=== PATIENT | female | born 1990 | race Two or more races ===

== ENCOUNTER 2024-04-21 18:35 | Inpatient (IN) | payer BC, MEDICAID ==
[~2024-04-21] VITALS: Ht 165.1 cm; Wt 98.4 kg
[~2024-04-21 18:35] MED LIST: AMLO1TAB23 PO; LOSA-533 PO; METF-370 PO; SEMA2INJ3 SC; TRIA0.02 TOP
[2024-04-21 19:24] LABS: Chloride 106 mmol/L (98-107); Potassium 3.5 mmol/L (3.5-5.1); Sodium 137 mmol/L (136-145)
[2024-04-21 19:25] LABS: Anion Gap 8 (5-15); Carbon Dioxide 23 mmol/L (20-31)
[2024-04-21 19:26] LABS: Basophils # (auto) 0.1 10 ^3/uL (0-0.2); Calcium 9.5 mg/dL (8.7-10.4); Eosinophils # (auto) 0.2 10 ^3/uL (0-0.8); Hemoglobin 13.1 g/dL (12.2-16.2); Lymphocytes # (auto) 2.6 10 ^3/uL (0.4-5.4); Neutrophils # (auto) 8.6 10 ^3/uL (1.6-8.6); Nucleated Red Blood Cells % 0.1 %; White Blood Cell 12.1 10^3/uL (4.4-10.8)
[2024-04-21 19:28] LABS: Basophils % (auto) 0.7 % (0.0-2.0); Eosinophils % (auto) 1.9 % (0.0-7.0); Hematocrit 40.5 % (36.0-46.0); Lymphocytes % (auto) 21.2 % (10.0-50.0); Mean Corpuscular Hemoglobin 22.7 pg (28.0-32.0); Mean Corpuscular Hgb Conc. 32.4 g/dL (32.0-36.0); Monocytes # (auto) 0.7 10 ^3/uL (0-1.3); Monocytes % (auto) 5.4 % (0.0-12.0); Neutrophils % (auto) 70.8 % (37.0-80.0); Platelet Count (auto) 319 10^3/uL (140-450); Red Blood Cells 5.79 10^6/uL (4.0-5.20); Red Cell Distribution Width 17.2 % (11.8-14.3)
[2024-04-21 19:31] LABS: BUN/Creatinine Ratio 11.3 (10.0-20.0); Blood Urea Nitrogen 7 mg/dL (9-23); Glucose 155 mg/dL (74-106)
[2024-04-21 19:41] VITALS: PULSE 99; RESP 25; O2SAT 99
[2024-04-21] MEDS: ACETAMINOPHEN 325 MG TAB PO ONE (20:19)
[2024-04-21 21:00] VITALS: PULSE 82; RESP 15; O2SAT 99
[2024-04-21 21:49] LABS: Urine Bacteria None Seen /hpf (None Seen)
[2024-04-21 21:57] LABS: Urine Blood TRACE /uL (Negative); Urine Clarity Clear (Clear); Urine Color Light-Yellow (Yellow); Urine Protein, UAD TRACE (Negative); Urine Specific Gravity 1.011 (1.001-1.035); Urine Urobilinogen Normal (Negative); Urine WBC 22 /hpf (0 - 5); Urine pH 5.5 (5.0-9.0)
[2024-04-21] MEDS: SODIUM CHLORIDE 0.9% 1,000 ML IV ONE (22:03)
[2024-04-21] MEDS ORDERED: CEPH250C PO (22:25)
[2024-04-21] MEDS: CEPHALEXIN 250 MG CAP PO ONE (22:59)
[2024-04-22] MEDS ORDERED: DEXTROSE (50%) 50ML SYRG IV PRN (00:15)
[2024-04-22] MEDS ORDERED: LABETALOL HCL 20 MG/4 ML VL IV PRN (00:15)
[2024-04-22] MEDS: cefTRIAXone 1GM/50ML D5W 50 ML IV ONE (00:15)
[2024-04-22 00:19] LABS: Urine Bacteria None Seen /hpf (None Seen)
[2024-04-22 00:44] LABS: Urine Blood 2+ /uL (Negative); Urine Clarity Clear (Clear); Urine Color Light-Yellow (Yellow); Urine Protein, UAD Negative (Negative); Urine Specific Gravity 1.015 (1.001-1.035); Urine Urobilinogen Normal (Negative); Urine WBC 24 /hpf (0 - 5)
[2024-04-22] MEDS: ACETAMINOPHEN 325 MG TAB PO PRN (01:04)
[2024-04-22 01:44] LABS: Amphetamine Screen, Urine Neg (NEGATIVE); Barbiturate Scree,Urine Neg (NEGATIVE); Benzodiazephine Screen, Urine Neg (NEGATIVE)
[2024-04-22 01:45] LABS: Cannabinoid Screen, Urine Neg (NEGATIVE); Cocaine Screen, Urine Neg (NEGATIVE); Opiate Scree,Urine Neg (NEGATIVE); Phencyclidine Screen, Urine Neg (NEGATIVE)
[2024-04-22 02:17] LABS: INR 1.03 (0.9-1.15); Partial Thromboplastin Time 28.1 SEC (24.5-34.5); Prothrombin Time 10.9 sec (9.3-11.8)
[2024-04-22 02:20] LABS: Bilirubin, Direct 0.2 mg/dL (<0.3); Bilirubin, Total 0.5 mg/dL (0.2-1.0); Total Protein 6.9 g/dL (5.7-8.2)
[2024-04-22] MEDS: ACCU-CHEK COMFORT CURVE STRIP VI SCH (03:58)
[2024-04-22] MEDS: InsuLIN REG 1unit/0.01ml Soln (100units/ml) SC SCH (03:58)
[2024-04-22 07:39] VITALS: PULSE 90; RESP 13; O2SAT 98
[2024-04-22] MEDS ORDERED: AML5T PO (08:17)
[2024-04-22 08:42] LABS: Chloride 108 mmol/L (98-107); Potassium 3.6 mmol/L (3.5-5.1); Sodium 139 mmol/L (136-145)
[2024-04-22 08:43] LABS: Anion Gap 6 (5-15); Carbon Dioxide 25 mmol/L (20-31)
[2024-04-22 08:44] LABS: Basophils # (auto) 0 10 ^3/uL (0-0.2); Basophils % (auto) 0.3 % (0.0-2.0); Eosinophils # (auto) 0.1 10 ^3/uL (0-0.8); Mean Corpuscular Volume 70.3 fL (80.0-100.0); Monocytes # (auto) 0.5 10 ^3/uL (0-1.3)
[2024-04-22 08:48] LABS: BUN/Creatinine Ratio 8.9 (10.0-20.0); Blood Urea Nitrogen 5 mg/dL (9-23); Glucose 115 mg/dL (74-106)
[2024-04-22 08:49] LABS: Eosinophils % (auto) 1.1 % (0.0-7.0); Hematocrit 35.5 % (36.0-46.0); Hemoglobin 11.5 g/dL (12.2-16.2); Lymphocytes # (auto) 1.8 10 ^3/uL (0.4-5.4); Lymphocytes % (auto) 17.6 % (10.0-50.0); Mean Corpuscular Hemoglobin 22.8 pg (28.0-32.0); Mean Corpuscular Hgb Conc. 32.4 g/dL (32.0-36.0); Monocytes % (auto) 4.5 % (0.0-12.0); Neutrophils # (auto) 7.9 10 ^3/uL (1.6-8.6); Neutrophils % (auto) 76.5 % (37.0-80.0); Nucleated Red Blood Cells % 0.1 %; Platelet Count (auto) 268 10^3/uL (140-450); Red Blood Cells 5.04 10^6/uL (4.0-5.20); White Blood Cell 10.4 10^3/uL (4.4-10.8)
[2024-04-22] MEDS: SODIUM CHLORIDE 0.9% 1,000 ML IV ONE (09:11)
[2024-04-22] MEDS: MORPHINE SULFATE INJ 2 MG/ml SYRG IV ONE (09:13)
[2024-04-22] MEDS ORDERED: METHOTREXATE SODIUM 25 MG/ML 2ML SDV INJ IM ONE (14:45)
[2024-04-22] MEDS: METHOTREXATE SODIUM 25 MG/ML 2ML SDV INJ IM ONE (15:53)
[2024-04-22] MEDS ORDERED: HYDROcodone-ACET 5/325MG TAB PO PRN (18:30)
[2024-04-22 19:34] VITALS: O2SAT 99
[2024-04-22] MEDS: HYDROcodone-ACET 10/325MG TAB PO PRN (21:03)
[2024-04-22] MEDS: cefTRIAXone 1GM/50ML D5W 50 ML IV SCH (21:16)
[2024-04-23 04:34] LABS: Basophils # (auto) 0.1 10 ^3/uL (0-0.2); Lymphocytes # (auto) 2.4 10 ^3/uL (0.4-5.4); Monocytes # (auto) 0.6 10 ^3/uL (0-1.3); Nucleated Red Blood Cells % 0.1 %
[2024-04-23 04:37] LABS: Basophils % (auto) 0.8 % (0.0-2.0); Eosinophils # (auto) 0.2 10 ^3/uL (0-0.8); Hematocrit 36.4 % (36.0-46.0); Hemoglobin 11.6 g/dL (12.2-16.2); Lymphocytes % (auto) 19.5 % (10.0-50.0); Mean Corpuscular Hgb Conc. 31.8 g/dL (32.0-36.0); Mean Corpuscular Volume 72.3 fL (80.0-100.0); Monocytes % (auto) 5.2 % (0.0-12.0); Neutrophils # (auto) 8.8 10 ^3/uL (1.6-8.6); Neutrophils % (auto) 72.5 % (37.0-80.0); Platelet Count (auto) 278 10^3/uL (140-450); Red Blood Cells 5.03 10^6/uL (4.0-5.20); Red Cell Distribution Width 17.2 % (11.8-14.3); White Blood Cell 12.1 10^3/uL (4.4-10.8)
[2024-04-23 04:47] LABS: Anion Gap 7 (5-15); Carbon Dioxide 23 mmol/L (20-31); Chloride 107 mmol/L (98-107); Potassium 3.8 mmol/L (3.5-5.1); Sodium 137 mmol/L (136-145)
[2024-04-23 04:48] LABS: Calcium 8.9 mg/dL (8.7-10.4)
[2024-04-23 04:53] LABS: Glucose 113 mg/dL (74-106)
[2024-04-23 04:56] LABS: BUN/Creatinine Ratio 9.1 (10.0-20.0); Blood Urea Nitrogen < 5 mg/dL (9-23)
[2024-04-23 07:30] VITALS: PULSE 87; RESP 21; O2SAT 98
[2024-04-23 18:15] VITALS: BP 149/98; PULSE 80; RESP 20; TEMP 98.4; O2SAT 98
[2024-04-23 20:00] VITALS: PULSE 89; RESP 18; O2SAT 98
[2024-04-23 21:00] VITALS: BP 149/84; PULSE 89; RESP 18; TEMP 98.6; O2SAT 98
[2024-04-24] VITALS (7 sets, daily range): BP systolic 126–156; BP diastolic 75–98; PULSE 75–92; RESP 16–18; TEMP 97.5–99.4; O2SAT 95–98
[2024-04-24 05:55] LABS: Basophils # (auto) 0 10 ^3/uL (0-0.2); Basophils % (auto) 0.4 % (0.0-2.0); Eosinophils # (auto) 0.2 10 ^3/uL (0-0.8); Lymphocytes # (auto) 1.5 10 ^3/uL (0.4-5.4); Neutrophils # (auto) 6.6 10 ^3/uL (1.6-8.6); Red Cell Distribution Width 16.9 % (11.8-14.3); White Blood Cell 8.7 10^3/uL (4.4-10.8)
[2024-04-24 05:58] LABS: Eosinophils % (auto) 2.4 % (0.0-7.0); Hemoglobin 11.6 g/dL (12.2-16.2); Lymphocytes % (auto) 17.3 % (10.0-50.0); Mean Corpuscular Hemoglobin 22.8 pg (28.0-32.0); Mean Corpuscular Hgb Conc. 32.2 g/dL (32.0-36.0); Mean Corpuscular Volume 70.8 fL (80.0-100.0); Monocytes # (auto) 0.4 10 ^3/uL (0-1.3); Monocytes % (auto) 4.5 % (0.0-12.0); Neutrophils % (auto) 75.4 % (37.0-80.0); Platelet Count (auto) 265 10^3/uL (140-450); Red Blood Cells 5.09 10^6/uL (4.0-5.20)
[2024-04-24 06:09] LABS: Anion Gap 8 (5-15); Carbon Dioxide 23 mmol/L (20-31); Chloride 106 mmol/L (98-107); Potassium 3.6 mmol/L (3.5-5.1); Sodium 137 mmol/L (136-145)
[2024-04-24 06:11] LABS: Calcium 9.3 mg/dL (8.7-10.4)
[2024-04-24 06:15] LABS: Glucose 99 mg/dL (74-106)
[2024-04-24 06:16] LABS: BUN/Creatinine Ratio 13.5 (10.0-20.0); Blood Urea Nitrogen 7 mg/dL (9-23)
[2024-04-24] MEDS ORDERED: ZOFR4T PO (11:40)
== END 2024-04-24 12:30 | disposition home or self-care (01) | DRG 831 ==
LOC: ER 18:35 → OVERFLOW 23:44 → WEST WING 04-23 17:52
PROVIDERS: ADMIT Internal Medicine Geriatric Medicine; ATTEND Internal Medicine Geriatric Medicine
DX: O00.90 Unspecified ectopic pregnancy without intrauterine pregnancy (principal); A41.9 Sepsis, unspecified organism; N39.0 Urinary tract infection, site not specified; O98.811 Other maternal infectious and parasitic diseases complicating pregnancy, first trimester; O23.41 Unspecified infection of urinary tract in pregnancy, first trimester; O16.1 Unspecified maternal hypertension, first trimester; O99.891 Other specified diseases and conditions complicating pregnancy; R73.03 Prediabetes; Z88.2 Allergy status to sulfonamides; Z82.49 Family history of ischemic heart disease and other diseases of the circulatory system; Z83.3 Family history of diabetes mellitus
CPT/HCPCS: 36415; 76801; 80048; 80076; 80307; 81001; 82962; 83036; 83690; 84443; 84702; 85025; 85610; 85730; 87086; 96361; 96365; 96366; 96372; 96375; G0378; J1815